=== PATIENT | female | born 1955 | race Caucasian/White ===

== ENCOUNTER → 2017-06-10 | Outpatient (CLI) | payer OTHER | LOC: BMCIMAGING 14:39 | PROVIDERS: ATTEND Internal Medicine | DX: Z12.31 Encounter for screening mammogram for malignant neoplasm of breast (principal); Z13.820 Encounter for screening for osteoporosis; M85.80 Other specified disorders of bone density and structure, unspecified site | CPT/HCPCS: G0202 ==

== ENCOUNTER 2019-02-15 09:40 | Emergency (ER) | payer OTHER ==
[2019-02-15] MEDS ORDERED: NS 500 ML IV ONE (10:02)
[2019-02-15 10:12] LABS: PLATELET COUNT 289 10^3/uL (150-400)
--- NOTE | 2019-02-15 10:14 | EDPHY ---
H & P Time Seen by Provider: 02/15/19 10:02 HPI/ROS: HPI Lightheaded at work. 63-year-old female by private vehicle. This patient was at work. She uses stand up desk. She was standing at her desk when at approximately 9:00 a.m. She felt lightheaded. She describes this as a feeling like she was going to faint. She sat down. She put her head down on a desk but did not feel better. She denies vertigo. She is feeling better now in the emergency department. She had a friend bring her to the emergency department. She denies any associated chest pain, no palpitations. No sudden-onset headache. No shortness of breath. She denies any loss of sensation or weakness in her extremities. She describes herself is otherwise healthy and has not had this type of feeling to this extreme in the past. She describes having some intermittent episodes of lightheadedness in the past but not to this extent. ROS: Constitutional: No fever, no chills. As above. Eyes: No discharge. No changes in vision. ENT: No sore throat. No nasal congestion or rhinorrhea. Respiratory: No cough. No shortness of breath. Cardiac: No chest pain, no palpitations. Gastrointestinal: No abdominal pain, no vomiting, no diarrhea. Genitourinary: No hematuria. No dysuria or increased frequency with urination. Musculoskeletal: No back pain. No neck pain. No myalgias or arthralgias. Skin: No rashes. Neurological: No headache. No focal weakness or altered sensation. Past medical history: She denies any significant past medical history. She is not on any prescription medication. Social history: She lives with her daughter. Nonsmoker. No alcohol. Physical Exam: General Appearance: Alert, no distress. This patient is responding to questions appropriately and in full sentences. This patient appears well- hydrated and well-nourished. Eyes: Pupils equal and round no pallor or injection. No lid edema, erythema or injection. ENT, Mouth: Mucous membranes are moist. The pharyngeal tissues are unremarkable. No edema or swelling. No asymmetry suggestive of abscess. No erythema or exudates. Respiratory: There are no retractions, lungs are clear to auscultation with good air movement bilaterally. No tachypnea. Cardiovascular: Regular rate and rhythm. No murmur appreciated. Gastrointestinal: Abdomen is soft and nontender, no masses, bowel sounds normal. No focal tenderness at McBurney's point. No Kent sign. Neurological: Motor sensory function is grossly intact. Cranial nerves are normal. Gait is normal. Skin: Warm and dry, no rashes. Musculoskeletal: Neck is supple and nontender. Extremities are symmetrical. All joints range without pain or impingement. Psychiatric: No agitation. No depression. Database: EKG: EKG time is 10:00 a.m.; EKG shows a narrow complex normal sinus rhythm with a ventricular rate of 74. The NC, QRS, QT intervals are within normal limits. There are no ST-T wave changes indicative of ischemic or injury pattern. No evidence of right heart strain. No evidence of WPW, Brugada syndrome, hypertrophic cardiomyopathy. Interpreted by me. Imaging: Procedures: Emergency department course: Triage vital signs reviewed. He is moderately hypertensive. Vital signs are otherwise normal. IV was placed. She was started on IV normal saline with 500 cc to be given over the next hour. EKG was obtained and reviewed by myself. 11:20 a.m., the patient was re-evaluated, she is resting comfortably at this time. Her vital signs have remained normal while in the emergency department. She has been mildly hypertensive. Blood pressure currently 145/99. monitoring coordinator shows a narrow complex sinus rhythm of 78. She has been up and ambulatory to the bathroom with a normal gait and asymptomatic. Results of her emergency department workup discussed with her. She feels comfortable going home with friends who are at the bedside and I feel she is safe for discharge. I will have her follow up with her primary care physician in the next 1-2 days. Return to emergency department precautions have been reviewed with her. All of her questions were answered. She was discharged from the emergency department in good condition. Differential Diagnosis: The differential diagnosis on this patient includes but is not limited to dehydration, transient hypoglycemia. Acute coronary syndrome, arrhythmia, subarachnoid hemorrhage, pulmonary embolism, CVA unlikely. This represents a partial list of diagnoses considered. These considerations are based on history , physical exam, past history, reassessment and diagnostic testing. Smoking Status: Never smoked Constitutional: Initial Vital Signs Temperature (C) 36.8 C 02/15/19 09:43 Heart Rate 78 02/15/19 09:43 Respiratory Rate 16 02/15/19 09:43 Blood Pressure 174/98 H 02/15/19 09:43 O2 Sat (%) 98 02/15/19 09:43 O2 Delivery Mode Room Air Allergies/Adverse Reactions: CATS Allergy (Intermediate, Uncoded 05/19/13 11:46) WHEEZING/SNEEZING DUST Allergy (Intermediate, Uncoded 05/19/13 11:46) WHEEZING/SNEEZING Home Medications: Medication Instructions Recorded NK [No Known Home Meds] 02/15/19 Medical Decision Making - Data Points Laboratory Results: Laboratory Results 02/15/19 10:00 02/15/19 10:00 02/15/19 02/15/19 02/15/19 10:51 10:00 10:00 WBC RBC Hgb Hct MCV MCH MCHC RDW Plt Count MPV Neut % (Auto) Lymph % (Auto) Stanton % (Auto) Eos % (Auto) Baso % (Auto) Nucleat RBC Rel Count Absolute Neuts (auto) Absolute Lymphs (auto) Absolute Monos (auto) Absolute Eos (auto) Absolute Basos (auto) Absolute Nucleated RBC Immature Gran % Immature Gran # PT 11.8 SEC L SEC (12.0-15.0) INR 0.90 (0.83-1.16) APTT 29.0 SEC SEC (23.0-38.0) Sodium 137 mEq/L mEq/L (135-145) Potassium 3.6 mEq/L mEq/L (3.5-5.2) Chloride 102 mEq/L mEq/L (97-110) Carbon Dioxide 25 mEq/l mEq/l (22-31) Anion Gap 10 mEq/L mEq/L (6-14) BUN 12 mg/dL mg/dL (7-23) Creatinine 0.6 mg/dL mg/dL (0.6-1.0) Estimated GFR > 60 Glucose 118 mg/dL H mg/dL (70-100) Calcium 9.7 mg/dL mg/dL (8.5-10.4) POC Troponin I 0.00 ng/mL ng/mL (0.00-0.08) 02/15/19 10:00 WBC 6.26 10^3/uL 10^3/uL (3.80-9.50) RBC 4.70 10^6/uL 10^6/uL (4.18-5.33) Hgb 14.4 g/dL g/dL (12.6-16.3) Hct 43.2 % % (38.0-47.0) MCV 91.9 fL fL (81.5-99.8) MCH 30.6 pg pg (27.9-34.1) MCHC 33.3 g/dL g/dL (32.4-36.7) RDW 13.1 % % (11.5-15.2) Plt Count 289 10^3/uL 10^3/uL (150-400) MPV 11.0 fL fL (8.7-11.7) Neut % (Auto) 63.7 % % (39.3-74.2) Lymph % (Auto) 22.2 % % (15.0-45.0) Stanton % (Auto) 10.4 % % (4.5-13.0) Eos % (Auto) 2.6 % % (0.6-7.6) Baso % (Auto) 0.8 % % (0.3-1.7) Nucleat RBC Rel Count 0.0 % % (0.0-0.2) Absolute Neuts (auto) 3.99 10^3/uL 10^3/uL (1.70-6.50) Absolute Lymphs (auto) 1.39 10^3/uL 10^3/uL (1.00-3.00) Absolute Monos (auto) 0.65 10^3/uL 10^3/uL (0.30-0.80) Absolute Eos (auto) 0.16 10^3/uL 10^3/uL (0.03-0.40) Absolute Basos (auto) 0.05 10^3/uL 10^3/uL (0.02-0.10) Absolute Nucleated RBC 0.00 10^3/uL 10^3/uL (0-0.01) Immature Gran % 0.3 % % (0.0-1.1) Immature Gran # 0.02 10^3/uL 10^3/uL (0.00-0.10) PT INR APTT Sodium Potassium Chloride Carbon Dioxide Anion Gap BUN Creatinine Estimated GFR Glucose Calcium POC Troponin I Medications Given: Discontinued Medications Sodium Chloride (Ns) 500 mls @ 1,000 mls/hr IV EDNOW ONE PRN Reason: Protocol Stop: 02/15/19 10:31 Last Admin: 02/15/19 10:10 Dose: 500 mls Point of Care Test Results: Chemistry 02/15/19 10:51 POC Troponin I 0.00 ng/mL ng/mL (0.00-0.08) Departure - [facility] Clinical Impression: Lightheaded Condition: Good Instructions: Lightheadedness (ED) Additional Instructions: Read and follow provided instructions. Follow-up with your primary care physician in 1-2 days for re-evaluation. Keep yourself well hydrated. Return to the emergency department for fainting, return of lightheadedness, palpitations, chest pain, shortness of breath or other serious concerns. Referrals: Stephanie Byrd MD [Primary Care Provider] - As per Instructions
[2019-02-15 10:45] LABS: INR 0.9 (0.83-1.16); PROTIME(PATIENT) 11.8 SEC (12.0-15.0)
[2019-02-15 11:31] VITALS: BP 122/75
--- NOTE | 2019-02-15 15:17 | CPEKG ---
Test Reason : OPEN Blood Pressure : / mmHG Vent. Rate : 074 BPM Atrial Rate : 076 BPM P-R Int : 138 ms QRS Dur : 084 ms QT Int : 402 ms P-R-T Axes : 052 -09 033 degrees QTc Int : 446 ms Sinus rhythm Confirmed by Hua Quiroga ([id number]) on 02/15/2019 3:16:58 PM Referred By: PHYSICIAN ED Confirmed By:Hua Quiroga
== END 2019-02-15 11:38 | disposition still patient (30) ==
DX: R42 Dizziness and giddiness (principal); E86.9 Volume depletion, unspecified; Y99.0 Civilian activity done for income or pay
CPT/HCPCS: 84484-ER

== ENCOUNTER → 2019-03-08 | Outpatient (CLI) | payer OTHER | LOC: FIMAGING 07:57 | PROVIDERS: ATTEND Internal Medicine | DX: Z13.6 Encounter for screening for cardiovascular disorders (principal); I10 Essential (primary) hypertension; Z82.49 Family history of ischemic heart disease and other diseases of the circulatory system ==